=== PATIENT | male | born 1950 | race Caucasian/White ===

== ENCOUNTER → 2017-05-30 | Outpatient (CLI) | payer OTHER | LOC: M.RAD 12:56 | DX: M47.812 Spondylosis without myelopathy or radiculopathy, cervical region (principal); M47.894 Other spondylosis, thoracic region; M25.78 Osteophyte, vertebrae; M50.321 Other cervical disc degeneration at C4-C5 level; M43.12 Spondylolisthesis, cervical region; I65.23 Occlusion and stenosis of bilateral carotid arteries; M46.82 Other specified inflammatory spondylopathies, cervical region; Z95.828 Presence of other vascular implants and grafts ==

== ENCOUNTER → 2017-07-16 | Outpatient (CLI) | payer OTHER | LOC: M.LAB 08:14 → M.CT 09:30 | DX: R22.1 Localized swelling, mass and lump, neck (principal); I67.2 Cerebral atherosclerosis ==